=== PATIENT | female | born 1985 | race Caucasian/White ===

== ENCOUNTER → 2017-05-13 | Outpatient (CLI) | payer OTHER ==
[2017-05-11 15:00] VITALS: BP 134/83
[~2017-05-13] MED LIST: AZIT1PAC PO; OMEP20TA63 PO
--- NOTE | 2017-05-13 11:04 | CARD ---
APPROVED REPORT EXAM: Two-dimensional and M-mode echocardiogram with Doppler and color Doppler. Other Information Quality : Average INDICATION Chest Pain Chest pressure 2D DIMENSIONS Left Atrium(2D)3.8 (1.6-4.0cm)IVSd1.3 (0.7-1.1cm) LVDd5.7 (3.9-5.9cm)LVOT Diameter2.1 (1.8-2.4cm) PWd1.1 (0.7-1.1cm)LVDs3.5 (2.5-4.0cm) FS (%) 30.0 %SV108.1 ml LVEF(%)60.0 (>50%) M-Mode DIMENSIONS Left Atrium(MM)3.80 (2.5-4.0cm)Aortic Root2.70 (2.2-3.7cm) Mitral Valve MV E Wphbypau78.2cm/sMV DECEL [id number] MV A Emyrogkd78.3cm/sMV KSY18th E/A Ratio1.1MVA (PHT)3.70cm2 TDI E/Lateral E'5.6E/Medial E'7.4 Pulmonary Valve PV Peak Aohouqbp780.0cm/sPV Peak Grad.7mmHg LEFT VENTRICLE The left ventricle is normal size. Mild thickening of the septum. The left ventricular systolic funct ion is normal and the ejection fraction is within normal range. The Ejection Fraction is >55%. There is normal LV segmental wall motion. The left ventricular diastolic function and filling is normal for age. No evidence of VSD. Cannot rule out presence of a prior VSD in the muscular septum. RIGHT VENTRICLE The right ventricle is normal size. There is normal right ventricular wall thickness. The right ventr icular systolic function is normal. ATRIA The left atrium size is normal. The right atrium size is normal. The interatrial septum is intact wit h no evidence for an atrial septal defect or patent foramen ovale as noted on 2-D or Doppler imaging. AORTIC VALVE Poor visualization. The aortic valve is normal in structure and function. Doppler and Color Flow reve aled no significant aortic regurgitation. There is no significant aortic valvular stenosis. MITRAL VALVE The mitral valve is normal in structure and function. There is no evidence of mitral valve prolapse. There is no mitral valve stenosis. Doppler and Color-flow revealed trace mitral regurgitation. TRICUSPID VALVE The tricuspid valve is normal in structure and function. Doppler and Color Flow revealed no tricuspid valve regurgitation noted. There is no tricuspid valve stenosis. PULMONIC VALVE Doppler and Color Flow revealed no pulmonic valvular regurgitation. There is no pulmonic valvular ebenezer nosis. GREAT VESSELS The aortic root is normal in size. The IVC is normal in size and collapses >50% with inspiration. PERICARDIAL EFFUSION There is no pleural effusion. There is no evidence of significant pericardial effusion. Critical Notification Critical Value: No <Conclusion> The left ventricular systolic function is normal and the ejection fraction is within normal range. Th e Ejection Fraction is >55%. There is normal LV segmental wall motion. No significant congenital disease noted.
== END | disposition home or self-care (01) ==
LOC: ECHO 08:01
PROVIDERS: ATTEND Internal Medicine Cardiovascular Disease
DX: R07.9 Chest pain, unspecified (principal)
CPT/HCPCS: 93306